=== PATIENT | female | born 1970 | race Asian ===

== ENCOUNTER → 2025-04-04 07:43 | Outpatient (REF) | payer BC, SELFPAY | LOC: EMG 07:43 | PROVIDERS: ATTENDING PHYSICIAN Orthopaedic Surgery Hand Surgery; FAMILY PHYSICIAN Family Medicine | DX: M77.11 Lateral epicondylitis, right elbow (principal); M25.521 Pain in right elbow; R20.0 Anesthesia of skin | CPT/HCPCS: 95886; 95910 ==